=== PATIENT | female | born 1980 | race Caucasian/White ===

== ENCOUNTER 2017-05-15 09:36 | Emergency (ER) | payer BC ==
[2017-05-15 09:45] VITALS: BP 112/79; PULSE 90; RESP 18; TEMP 98.4; O2SAT 99
--- NOTE | 2017-05-15 09:52 | C.PDOC ---
History Of Present Illness 36 y/o female presents to ED with complaints of itchy rash to bilateral lower extremities since a few days ago. Patient states she has been out working on [place] and developed red and itching rash. Patient denies fever, chills, sob, n/v /d or any other complaints at this time. Time Seen by Provider: 05/15/17 09:45 Chief Complaint (Nursing): Abnormal Skin Integrity History Per: Patient History/Exam Limitations: no limitations Onset/Duration Of Symptoms: Days Current Symptoms Are (Timing): Still Present Quality Of Symptoms: Itching Past Medical History Reviewed: Historical Data, Nursing Documentation, Vital Signs Vital Signs: Last Vital Signs Temp 98.4 F 05/15/17 09:42 Pulse 90 05/15/17 09:42 Resp 18 05/15/17 09:42 BP 112/79 05/15/17 09:42 Pulse Ox 99 05/15/17 09:53 - Medical History PMH: Hypercholesterolemia Family History: States: Unknown Family Hx - Social History Hx Tobacco Use: No Hx Alcohol Use: Yes Hx Substance Use: No - Immunization History Hx Tetanus Toxoid Vaccination: No Hx Influenza Vaccination: No Hx Pneumococcal Vaccination: No Review Of Systems Except As Marked, All Systems Reviewed And Found Negative. Constitutional: Negative for: Fever, Chills Respiratory: Negative for: Shortness of Breath Gastrointestinal: Negative for: Nausea, Vomiting, Diarrhea Skin: Positive for: Rash Physical Exam - Physical Exam Appears: Non-toxic, No Acute Distress Skin: Warm, Rash (Linear paterns of vesicles Urticaria and redness consistant w/ posion taisha) Head: Atraumatic, Normacephalic Oral Mucosa: Moist Chest: Symmetrical Cardiovascular: Rhythm Regular Respiratory: Normal Breath Sounds, No Rales, No Rhonchi, No Wheezing Gastrointestinal/Abdominal: Soft, No Tenderness, No Guarding, No Rebound Extremity: Normal ROM, Capillary Refill (<2 seconds) Neurological/Psych: Oriented x3, Normal Motor, Normal Sensation ED Course And Treatment O2 Sat by Pulse Oximetry: 99 (RA) Pulse Ox Interpretation: Normal Medical Decision Making Medical Decision Making: Patient treated with Cortisone cream Disposition Counseled Patient/Family Regarding: Diagnosis, Need For Followup, Rx Given - Disposition Referrals: [facility] [Outside] Disposition: HOME/ ROUTINE Disposition Time: 09:49 Condition: STABLE Prescriptions: DiphenhydrAMINE [Benadryl] 25 mg PO TID #12 cap Hydrocortisone [Cortisone] 28 gm TP TID #28 gm Instructions: Poison Taisha (ED) Forms: [facility] (Malagasy), Gen Discharge Inst Malagasy - POA Present On Arrival: None - Clinical Impression Clinical Impression: Poison taisha - Scribe Statement The provider has reviewed the documentation as recorded by the Lauraibchrissie Khan All medical record entries made by the Lauraibchrissie were at my direction and personally dictated by me. I have reviewed the chart and agree that the record accurately reflects my personal performance of the history, physical exam, medical decision making, and the department course for this patient. I have also personally directed, reviewed, and agree with the discharge instructions and disposition.
== END 2017-05-15 10:04 | disposition home or self-care (01) ==
LOC: C.ER 09:36
DX: L23.7 Allergic contact dermatitis due to plants, except food (principal)